=== PATIENT | female | born 1935 | race Caucasian/White ===

== ENCOUNTER 2019-06-29 13:23 | Emergency (ER) | payer OTHER, SELFPAY ==
--- NOTE | 2019-06-29 13:43 | ED.WOUNDLAC ---
HPI - Wound/Laceration General Chief Complaint: Wound/Laceration Stated Complaint: stitches removal Source: patient and RN notes reviewed Mode of arrival: ambulatory (walker) Limitations: no limitations History of Present Illness HPI narrative: This is a 84 years old female presents to the office for an evaluation to get staple removed. She had a stable place on June 17 at [facility] post fall. Currently she is feeling fine except a little itchy scalp where the aleta are. She has not washed her hair since the injury. Related Data Home Medications Medication Instructions Recorded Confirmed Aspir-81 06/29/19 alprazolam 06/29/19 amlodipine 06/29/19 atorvastatin 06/29/19 fluticasone propionate INTRANASAL 06/29/19 losartan 06/29/19 metoprolol tartrate 06/29/19 omeprazole 06/29/19 Allergies Allergy/AdvReac Type Severity Reaction Status Date / Time ANTINEOPL Allergy Intermediate Uncoded 12/02/14 14:34 chemo drugs Allergy Intermediate Uncoded 12/02/14 14:34 NITROGLYCERIN (Generic Allergy Mild Y Uncoded 12/02/14 14:34 Allergy) CHEMOTHERAPY DRUGS AdvReac Severe SYSTEM Uncoded 10/12/14 12:48 SHUTDOWN Review of Systems Review of Systems: Narrative: CONSTITUTIONAL: Denies feeling ill CARDIOVASCULAR: Denies chest pain RESPIRATORY: Denies dyspnea GASTROINTESTINAL: Denies nausea, vomiting SKIN: Reports maybe 4-6staples; not sure how many NEUROLOGIC: Denies headache PMFSH Past Medical History Medical History Anxiety ASHD (arteriosclerotic heart disease) Bilateral malignant neoplasm of breast in female 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 Cerebrovascular accident (CVA) Crohn's disease of small and large intestines with complication Essential hypertension Frequent falls H/O acute myocardial infarction Mixed hyperlipidemia 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 There is no relevant family history pertinent to the presenting complaint. Exam Narrative: Exam Narrative: GENERAL: This is a well-nourished, well-developed patient, in no apparent distress. HEAD: right parietal head noted 5staples; which were easily removed. Wound appears healing as aspect; no sign of secondary infection. NEURO: awake, alert, and oriented to person, place and time. There were no obvious focal neurologic abnormalities. Steady gait with walker Becker Coma Scale Eye Opening: Spontaneous 4 Becker Coma Scale Motor: Obeys Commands 6 Becker Coma Scale Verbal: Oriented 5 Course Vital Signs Vital signs: Vital Signs Temperature 98.7 F 06/29/19 13:47 Pulse Rate 71 06/29/19 13:47 Respiratory Rate 16 06/29/19 13:47 Blood Pressure 131/69 06/29/19 13:47 Pulse Oximetry 98 06/29/19 13:47 Temperature 98.7 F 06/29/19 13:47 Pulse Rate 71 06/29/19 13:47 Respiratory Rate 16 06/29/19 13:47 Blood Pressure 131/69 06/29/19 13:47 Pulse Oximetry 98 06/29/19 13:47 Critical Care Time Critical Care Time Critical Care Time: No Discharge Plan Discharge Clinical Impression: Encounter for removal of aleta Patient Disposition: Home, Self-Care Condition: Stable Additional Instructions: You may wash your hair; but gentle and then dry it. Avoid scratching as it may lead to skin infection. Prescriptions: No Action atorvastatin 40 mg tablet RF: 0 metoprolol tartrate 100 mg tablet RF: 0 amlodipine 5 mg tablet RF: 0
[2019-06-29 13:47] VITALS: BP 131/69; PULSE 71; RESP 16; TEMP 37.1; O2SAT 98
== END 2019-06-29 14:22 | disposition home or self-care (01) ==
PROVIDERS: Emergency Provider Nurse Practitioner; PCP Family Medicine
DX: S01.01XD Laceration without foreign body of scalp, subsequent encounter (principal); W19.XXXD Unspecified fall, subsequent encounter
CPT/HCPCS: 99211; G0463

== ENCOUNTER 2020-09-09 11:38 | Outpatient (CLI) | payer OTHER, SELFPAY ==
--- NOTE | ~2020-09-09 | US_ITS ---
EXAMINATION: US venous doppler [facility] DATE: 09/09/2020 12:51 INDICATION: Lower limb pain and swelling. TECHNIQUE: Grayscale ultrasound images without and with compression and Doppler ultrasound images of the bilateral lower extremity veins were obtained. COMPARISON: None. FINDINGS: The visualized portions of right common femoral vein, profunda (deep) femoral vein, femoral vein, pop liteal vein, peroneal veins, posterior tibial veins, and greater saphenous vein outflow are patent. The visualized portions of left common femoral vein, profunda femoral vein, femoral vein, popliteal v ein, peroneal veins, posterior tibial veins, and greater saphenous vein outflow are patent. IMPRESSION: 1. No deep venous thrombosis. Reviewed, dictated and finalized at location A.
== END 2020-09-09 11:39 | disposition home or self-care (01) ==
LOC: ANHIMG 11:46
PROVIDERS: Visit Provider Podiatrist Foot & Ankle Surgery
DX: M79.89 Other specified soft tissue disorders (principal)
CPT/HCPCS: 93970

== ENCOUNTER 2021-04-03 19:48 | Inpatient (IN) | payer OTHER, MEDICAID, SELFPAY ==
--- NOTE | ~2021-04-03 | CT_ITS ---
EXAMINATION: CT brain wo con EXAM DATE: 04/04/2021 19:35 INDICATION: hyponatremia with ams. TECHNIQUE: Spiral CT of the head was performed without contrast. Axial, coronal and sagittal images were reviewed. The dose-length product (DLP) for this examination was 605.33 mGy-cm. The exposure w as tailored according to patient size, and iterative reconstruction (ASIR) was used as additional dos e reduction technique. Comparison is made to prior examination from 02/22/2011. FINDINGS: There is no acute intraparenchymal hemorrhage. No evidence of intraparenchymal brain mass lesion. No evidence of acute infarction. Please note that initial head CT has limited sensitivity f or small or acute infarctions. There is moderate-sized old right occipital lobe infarction, was not present in 2015. There is moderate periventricular and subcortical hypodensity, nonspecific but prob ably related to small vessel ischemic disease. There is prominence of the sulci and ventricles rela latrice to cerebral atrophy. There is intracranial carotid arteriosclerosis. There are no extra-axial collections. There is no mass effect or midline shift. Patient has had right-sided ocular lens surg gokul. Soft tissue is unremarkable. Completely opacified left frontal, anterior ethmoid, maxillary si nuses, ostiomeatal unit obstructive pattern. This was present in 2014. IMPRESSION: 1. No acute intracranial findings. 2. Chronic age related findings. 3. Chronic left lower OMU pattern obstructive sinus disease. Reviewed, dictated and finalized at location . PLANNER
--- NOTE | ~2021-04-03 | XR_ITS ---
EXAMINATION: XR chest 2V EXAM DATE: 04/03/2021 23:05 INDICATION: Hyponatremia, Increased Weakness, Nausea, Vomiting, Bone CA. TECHNIQUE: Frontal and lateral projections of the chest obtained and reviewed. Comparison is made to prior examination from 06/21/2014. FINDINGS: There is a dual lead pacemaker/AICD seen with leads projecting over the expected locations of the right atrial appendage and right ventricle. There is cardiomegaly. The lungs are hyperinfla latrice which can be seen with chronic obstructive pulmonary disease (a clinical diagnosis of functional impairment), but is not diagnostic of it. No confluent consolidation, pneumothorax or pleural effusion suspected. Right axillary surgical clips . Severe left glenohumeral joint osteoarthritis. Moderate thoracolumbar levoscoliosis, mild thoracic dextroscoliosis. There is aortic arteriosclerosis. There is an old right 7th rib fracture posterolate rally. IMPRESSION: No acute cardiopulmonary findings or interval change. Reviewed, dictated and finalized at location . 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
[2021-04-03 19:57] VITALS: BP 72/36; PULSE 52; RESP 20; TEMP 37.3; O2SAT 98
[2021-04-03 20:32] VITALS: BP 145/58; PULSE 66; RESP 16; O2SAT 100
--- NOTE | 2021-04-03 20:35 | ECG_ITS ---
Measurements Intervals [place] Rate: 66 P: 59 FL: 241 QRS: 5 QRSD: 102 T: 48 QT: 456 QTc: 478 Interpretive Statements SINUS RHYTHM WITH FIRST DEGREE AV BLOCK FREQUNET ATRIAL PREMATURE COMPLEXES BORDERLINE ST ABNORMALITY- ANTEROLAT/HIGH LAT LEADS BASELINE ARTIFACT- I, II, III, AVR, AVL, AVF, V1-V6 ABNORMAL ECG Electronically Signed On 04-04-2021 8:05:25 [employer]EL[employer] by Vikas Hinojosa D.O.
[2021-04-03 21:22] LABS: Basophils Absolute Auto 0.1 K/mm3 (0.0-0.1); Basophils Percent Auto 0.4 % (0.2-1.2); Eosinophils Absolute Auto 0.1 K/mm3 (0-0.3); Eosinophils Percent Auto 0.4 % (0-4.4); Hematocrit 35.8 % (37.0-47.0); Hemoglobin 12.4 g/dL (12.0-15.0); Immature Granulocyte Absolute 0.02 K/mm3 (0.00-0.031); Immature Granulocyte Percent A 0.2 % (0-0.5); Immature Platelet Fraction Pct 7.2 % (0.9-11.2); Lymphocytes Absolute Auto 3.38 K/mm3 (0.9-3.2); Lymphocytes Percent Auto 30.2 % (18.3-44.2); Mean Corpuscular HGB Conc 34.6 g/dl (32-36); Mean Corpuscular Hemoglobin 28.5 pg (26-34); Mean Corpuscular Volume 82.3 fl (80-100); Mean Platelet Volume 10.7 fl (7.4-10.4); Monocytes Absolute Auto 0.8 K/mm3 (0.1-0.6); Neutrophils Absolute Auto 6.9 K/mm3 (1.3-6.7); Neutrophils Percent Auto 61.8 % (45.5-73.1); Platelet Count Result 215 k/mm3 (150-375); Red Blood Count 4.35 M/mm3 (4.2-5.4); Red Cell Distribution Width 13.2 % (11.5-14.5); White Blood Count 11.2 K/mm3 (4.5-10.0)
--- NOTE | 2021-04-03 21:25 | ED.WEAKNESS ---
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 go to [facility] but today she wanted to come here She says that she was kicked out of [facility] about 3 days ago She does not know why that happened or what her diagnosis was or even remember why she went to the hospital but she does recall bonding with a nurse on the fourth floor who was apparently descended from [employer] and while she was [place] so they apparently bonded over their ancestry Additionally she tells me that her dad worked on the [employer] bridge from [place] [facility] when she was a kid and that she was very precocious and would only swim in 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 Asher who is apparently a very famous urologist who used to have offices in the [facility] according to the patient but she is not sure what the diagnosis is either There is a lack of any other explicit complaints such as cough, gi sx, cp, etc. Related Data Home Medications Medication Instructions Recorded Confirmed Aspir-81 06/29/19 alprazolam 06/29/19 amlodipine 06/29/19 atorvastatin 06/29/19 fluticasone propionate INTRANASAL 06/29/19 losartan 06/29/19 metoprolol tartrate 06/29/19 omeprazole 04/27/20 Allergies Allergy/AdvReac Type Severity Reaction Status Date / Time ANTINEOPL Allergy Intermediate Unknown Uncoded 04/03/21 20:34 chemo drugs Allergy Intermediate Unknown Uncoded 04/03/21 20:34 NITROGLYCERIN (Generic Allergy Mild Y Uncoded 12/02/14 14:34 Allergy) CHEMOTHERAPY DRUGS AdvReac Severe SYSTEM Uncoded 10/12/14 12:48 SHUTDOWN Review of Systems Review of Systems: All systems reviewed & are unremarkable except as noted in HPI and below Constitutional: Constitutional: Reports no additional constitutional complaints, Denies chills, Reports fatigue, Denies fever(s), Denies headache(s) and Reports weakness Eyes: Eyes: Reports change in vision ENT: Denies headache(s) and Denies sore throat Cardiovascular: Cardiovascular: Denies chest pain and Denies dyspnea Respiratory: Respiratory: Denies cough and Denies dyspnea Gastrointestinal: Gastrointestinal: Denies abdominal pain, Denies diarrhea, Reports nausea and Denies vomiting Genitourinary: Genitourinary: Denies urinary frequency, Reports nocturia and Reports dysuria Musculoskeletal: Musculoskeletal: Reports myalgias, Denies deformity, Denies arthralgias, Denies joint swelling and Denies numbness Integumentary/Breasts: Skin/Breast: Denies rash and Denies wounds Neurologic: Reports confusion, Denies headache(s), Denies focal weakness, Denies numbness and Reports weakness Psychiatric: Psychiatric: Reports as per HPI Endocrine: Endocrine: Reports no additional endocrine complaints Hematologic/Lymphatic: Hematologic/Lymphatic: Reports no additional hematologic/lymphatic complaints Allergic/Immunologic: Allergic/Immunologic
[2021-04-03 21:40] LABS: Alanine Aminotransferase 12 U/L (4-35); Albumin Level 4.2 g/dL (3.5-5.1); Alkaline Phosphatase 77 U/L (38-126); Anion Gap 8 mmol/L (8-16); Aspartate Amino Transferase 29 U/L (14-36); Bilirubin,Total 1.3 mg/dL (0.2-1.3); Blood Urea Nitrogen 7 mg/dL (7-17); Calcium 8.5 mg/dL (8.4-10.2); Carbon Dioxide 21 mmol/L (22-30); Chloride 89 mmol/L (98-107); Estimated CRCL calculation 83 ml/min; Estimated Glomerular Filt Rate > 60; Glucose 171 mg/dL (65-110); Potassium 3.3 mmol/L (3.4-5.0); Sodium 118 mmol/L (137-145)
--- NOTE | 2021-04-03 22:19 | PC.NURSE ---
Patient sits in the room and talks to herself.
[2021-04-03] MEDS: SODIUM CHLORIDE 0.9% IV 1,000 ML 150 ML IV CONT (22:29)
[2021-04-03] MEDS: POTASSIUM CHLORIDE 20 MEQ PACKET (FOR LIQUID) 40 MEQ PO (22:30)
[2021-04-03 22:47] VITALS: PULSE 65
--- NOTE | 2021-04-03 23:00 | PM.IMHP ---
H&P: HPI History of Present Illness Date/Time: 04/03/21 23:00 Chief Complaint: ?bladder issues? Narrative: 86-year-old female with past medical history of bipolar disorder, anxiety, hypertension and Crohn's disease who presented to the ER with bladder issues. She reports that any time her bladder builds up it poisons her. She stated that she came to the ER because she feels like she could . She cannot describe any other symptoms to me. I suspect that she is trying to describe urinary retention and possible urinary tract infections but I am unsure. Patient stated that she was just at [facility] for similar symptoms. She stated that she was there because her body was trying to poison her. She stated that she was kicked out of the hospital 3 days ago. She cannot tell me what her diagnosis was at the hospital. She states that she has stage IV non-Hodgkin's lymphoma but her oncologist told her that she would not from the lymphoma she would from old age 1st. She denies any fevers, chills, or vomiting. She tells me that she feels like something is here in points to her lower neck area. She states that she did get her COVID vaccines. The patient was alert and oriented to person place time and the name of the current president. She was confused as to what symptoms she brought her to the ER. She tells me that she has not been confused. But then no sooner than she says this she tells me that she has been delusional. She is quite fixated on the fact that her primary care physician stopped giving her Xanax. She reports that she has been on Xanax for years. Her last Xanax prescription was filled on the 22 of February and was a 10 day supply. She states that the physician she saw at the other hospital told her that it was inappropriate for primary care doctor to stop her Xanax since she had been on it for so many years. They told her that she will go through significant withdrawals. The patient reports that she is chronically anxious. The patient does not seem to be acutely withdrawing at this moment. I tried to explain to the patient that if she ran out of her meds a couple of weeks ago she should already be past the acute symptoms of withdrawal. The patient has straight catheterization in the ER which resulted in 800 mL in urine output. Bladder scan post straight catheterization still demonstrated almost 200 mL of urine. In the ER the patient was stating bizarre fax. 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 But today she wanted to come to our hospital for evaluation. She was rambling about bizarre fax in her childhood. She stated that she has some caregivers from the state that she had to get rid of because they were stealing from her. She has a new screen printing machine loader unloader that she hired herself but the screen printing machine loader unloader did not show up for left early and the patient was only able to eat peanut butter. She did not tell me any of these facts. She did tells me that she lives in a clean and style home in [place]. She states that her neighbor helps her out from time to time. She she states that she has a very large cat that is 2 years old. She reports that she ambulates with a walker. She states that she has 2 sons 1 lives in [place] that is her POA. The other son lives in [place]. She reports that she has not talked to her daughter in 10 years. Review of Systems Review of Systems: 12 systems were reviewed with pertinent positives and negatives per HPI. Except as documented in the HPI, all other systems were reviewed and are negative. 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
[2021-04-03 23:28] VITALS: BP 185/89; PULSE 70; RESP 15; O2SAT 18
[2021-04-03 23:49] LABS: Add Urine Microscopic? YES; Appearance Urine Clear (Clear); Bacteria Urine Trace /hpf; Bilirubin Urine Negative (Negative); Blood Urine Negative (Negative); Color Urine Straw (Yellow); Glucose Urine UA Negative (Negative); Ketones Urine Trace mg/dL (Negative); Leukocyte Esterase Ur Negative LEU/UL (Negative); Mucus Urine Rare /lpf; Nitrate Urine Negative (Negative); Protein Urine Negative (Negative); Specific Grav Ur 1.008 (1.001-1.035); Squamous Epithelial Cell Urine Rare /hpf (Few); Urobilinogen Urine Negative mg/dL (<2.0); WBC Urine 0-3 /hpf
[2021-04-03 23:53] LABS: Sodium Urine Random 146 meq/L
[2021-04-04] VITALS (15 sets, daily range): BP systolic 125–166; BP diastolic 51–92; PULSE 55–73; RESP 13–18; TEMP 36–37.4; O2SAT 95–99; BMI 19.4
[2021-04-04] MEDS: SODIUM CHLORIDE 0.9% IV 500 ML 999 ML IV CONT (00:10)
[2021-04-04 00:40] LABS: SARS-CoV-2 RNA PCR Negative
[2021-04-04 02:51] LABS: Creatinine Urine 14.2 mg/dL
--- NOTE | 2021-04-04 03:47 | ADMGEN ---
This patient, Moisse Lovlel, was admitted to Medical Room 343-01. Patient/family oriented to hospital policies and general routines including ID bracelet, bed and alarms, visiting hours, pain management, procedures, bathroom and other care routines, personal items, smoking policy, room service/diet, and visiting hours. Information on how to activate the Rapid Response Team has been discussed. Patient/Family are encouraged to report perceived risks to care and to ask questions if they do not understand what they are told or what they should do.
[2021-04-04 03:48] LABS: Basophils Absolute Auto 0.1 K/mm3 (0.0-0.1); Basophils Percent Auto 0.5 % (0.2-1.2); Eosinophils Percent Auto 0.3 % (0-4.4); Hemoglobin 13.5 g/dL (12.0-15.0); Immature Granulocyte Absolute 0.02 K/mm3 (0.00-0.031); Immature Granulocyte Percent A 0.2 % (0-0.5); Lymphocytes Absolute Auto 4.02 K/mm3 (0.9-3.2); Lymphocytes Percent Auto 39.1 % (18.3-44.2); Mean Corpuscular HGB Conc 34.6 g/dl (32-36); Mean Corpuscular Hemoglobin 28.5 pg (26-34); Mean Corpuscular Volume 82.5 fl (80-100); Mean Platelet Volume 9.6 fl (7.4-10.4); Monocytes Absolute Auto 0.7 K/mm3 (0.1-0.6); Monocytes Percent Auto 6.3 % (2.6-8.5); Neutrophils Absolute Auto 5.5 K/mm3 (1.3-6.7); Neutrophils Percent Auto 53.6 % (45.5-73.1); Platelet Count Result 236 k/mm3 (150-375); Red Blood Count 4.73 M/mm3 (4.2-5.4); Red Cell Distribution Width 13.2 % (11.5-14.5); White Blood Count 10.3 K/mm3 (4.5-10.0)
[2021-04-04 03:59] LABS: Anion Gap 6 mmol/L (8-16); Blood Urea Nitrogen 4 mg/dL (7-17); Calcium 8.7 mg/dL (8.4-10.2); Carbon Dioxide 21 mmol/L (22-30); Chloride 98 mmol/L (98-107); Estimated CRCL calculation 96 ml/min; Estimated Glomerular Filt Rate > 60; Glucose 124 mg/dL (65-110); Sodium 125 mmol/L (137-145)
[2021-04-04 04:08] LABS: Sodium 125 mmol/L (137-145)
--- NOTE | 2021-04-04 06:05 | PC.NURSE ---
Pt's NS maintenance fluids were not started in ED, pt's sodium correction was too fast, but this RN was awaiting next scheduled lab to check for human error in sodium correction. Physician (Dr. Moura) called to inquire about fluids and too fast of a correction, physician is informed that pt is not on fluids at this time and orders for them to be stopped at this time. This RN complies.
[2021-04-04] MEDS: ACETAMINOPHEN 325 MG TABLET 650 MG PO (08:34)
[2021-04-04] MEDS: FAMOTIDINE 20 MG/2 ML VIAL IV PUSH ×2 (08:38→21:14)
[2021-04-04 09:56] LABS: Sodium 123 mmol/L (137-145)
--- NOTE | 2021-04-04 10:58 | PM.CNNEP ---
Assessment and Plan Assessment and plan (1) Hyponatremia: Code(s): E87.1 - Hypo-osmolality and hyponatremia Status: Acute Assessment and Plan: The patient has hyponatremia. It looks like she has chronic hyponatremia dating back to 2001. We do not have any labs between 2010 and now. It is possible that her hypernatremia back then was related to her breast cancer and when the breast cancer went away it is possible the sodium level became easier to control. But I suspect that it has been low all along. We will try to get some records from her primary care physician. The patient had a very low-sodium this time. This is probably related to her underlying propensity to hyponatremia plus her drinking lots of fluids to help her bladder . I told the we needed to restrict fluids. She was somewhat upset because she is afraid of her bladder issues. I explained, however, that the hyponatremia that she came in with is potentially deadly so she seems to be on board with this idea. There are several things that cause hyponatremia: DANCE CHOREOGRAPHER disorders. Because of her history of breast cancer, will get an MRI of the brain to make sure there are no mass lesions. Pulmonary disorders. She has no smoking history, no pulmonary symptoms, and her chest x-ray is clear. Cancer. 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 These may cause some problems with hyponatremia. Medicines. The patient is not on any medications that would do this. Hormonal. Will check a TSH and a cortisol level. Will also check a urine and serum osmolality as well as an SPEP. With lymphoma she could have a paraproteinemia which can cause lab artifact and lead to a falsely low sodium. will put her on a fluid restriction of 1200cc and see how she does. Her sodium level this morning is 118 and I do not want it to correct too quickly. Will follow sodiums closely. (2) Hypokalemia: Code(s): E87.6 - Hypokalemia Status: Acute Assessment and Plan: this was supplemented and is better. (3) Urinary retention with incomplete bladder emptying: Code(s): R33.9 - Retention of urine, unspecified Status: Acute Assessment and Plan: UA is normal. 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 the patient was recently in [facility]. It is not clear which she was therefore but she was discharged about 3 days ago. Then she felt strange in so came to the ER it [place]. They evaluated her and found that her sodium was 118. She was felt to be dehydrated so she was given some IV fluids and the sodium came up to 125. Fluids were discontinued now her sodium is 123. Renal consultation was requested. Looking back in the records in 2001 her sodium was almost always below 135. She says that this is when she had her original breast cancer. In 2010 she had 1 blood draw which showed a low sodium as well. She says that she has never smoked. She does not have any lung disease. She had the 1 stroke but otherwise has not had any DANCE CHOREOGRAPHER issues. She has the history of breast cancer and also lymphoma apparently the breast cancer is in remission but the lymphoma is present all the time and w
[2021-04-04] MEDS: FLUTICASONE PROPIONATE 0.05% NA SPR 16 GM BTL (*BKC) 1 SPRAY NASAL (11:22)
[2021-04-04] MEDS: ATORVASTATIN 40 MG TABLET PO (11:22)
[2021-04-04] MEDS: METOPROLOL SUCCINATE EXT REL 100 MG TABCR PO ×2 (11:25→21:14)
[2021-04-04] MEDS: amLODIPine BESYLATE 5 MG TABLET PO (11:26)
--- NOTE | 2021-04-04 13:53 | PC.NURSE ---
On 04/04/21, the student, Melva Townsend, provided care and completed [facility] documentation on this patient. I have reviewed the student's documentation and agree with the findings.
--- NOTE | 2021-04-04 14:01 | PM.IMPN ---
Progress Note: A&P Assessment and Plan (1) Hyponatremia: Code(s): E87.1 - Hypo-osmolality and hyponatremia Status: Acute Assessment and Plan: ER administered IV fluids in the ER and repeat sodium was elevated from 118 to 125. IV fluids were discontinued to prevent further elevation of sodium. I consulted Dr. Chapa for further assistance with hyponatremia. Nephrology started a fluid restriction at 1200 cc daily Will continue monitoring sodium every 4 hours Further imaging and labs ordered by Nephrology Continue monitoring. (2) Delirium: Code(s): R41.0 - Disorientation, unspecified Status: Acute Assessment and Plan: Patient has delirium I suspect this is combination of her hyponatremia and or a component of her bipolar disorder or early dementia. Seems to have resolved upon my evaluation. (3) Hypokalemia: Code(s): E87.6 - Hypokalemia Status: Acute Assessment and Plan: The patient received oral potassium supplementation in the ER. K today was normal at 4.0 Will repeat BMP in a.m.. (4) Urinary retention with incomplete bladder emptying: Code(s): R33.9 - Retention of urine, unspecified Status: Acute Assessment and Plan: The patient does have evidence of urinary retention with 800 mL of urine removed with straight catheterization with residual of 200 mL. Bladder scan today showed less than 200 cc being retained. She had urinated twice before hand. Patient states she has seen a urologist in the past for this issue. Will check postvoid residuals Q shift and straight cath as needed. Urinary retention could also play a component of the patient's delirium. Continue monitoring. Time Spent With Patient Time with patient: 25 - 35 minutes Subjective Date/time seen: 04/04/21 14:01 Interval history: Date of service 04/04/21: Patient reports feeling well at this time. She states she came into the hospital due to urinary issues and states that it is much better at this time. She denies having any more urinary retention, or denies any symptoms of dysuria. She states she had been drinking a lot of fluid because after she was told to do when she has urinary issues. Denies any chest pain, shortness of breath, cough, nausea, vomiting, abdominal pain, leg swelling, calf pain, or any other symptoms at this time. Review of Systems Review of Systems: All systems reviewed & are unremarkable except as noted in HPI and below Exam Narrative: General: 86-year-old woman laying flat in bed taking a nap, easily arousable. Appears comfortable. In no acute distress. Skin: No jaundice or cyanosis. Good skin turgor. Neck: Full range of motion. Supple. Respiratory: Lungs are clear to auscultation bilaterally. No bony chest wall tenderness. Cardiovascular: The heart has a regular rate and rhythm without murmur. Lower extremities: No lower extremity edema. Distal pulses are easily palpated. No calf tenderness to palpation. Gastrointestinal: The abdomen is soft, nontender and nondistended with active bowel sounds. Psychiatric: Appropriate mood and affect. Neurologic: A&Ox4. No focal deficits. Speech is clear. No facial drooping. Objective Data Vital Signs Vital Signs: Vital Signs - 24 hr 04/03/21 19:57 04/03/21 20:32 04/03/21 22:47 Temperature 99.2 F Pulse Rate 52 L 66 65 Respiratory Rate 20 16 Blood Pressure 72/36 L 145/58 H Pulse Oximetry 98 100 04/03/21 23:28 04/04/21 00:11 04/04/21 01:32 Temperature Pulse Rate 70 71 56 L Respiratory Rate 15 13 14 Blood Pressure 185/89 H 166/72 H 131/76 Pulse Oximetry 18 L 98 95 04/04/21 01:56 04/04/21 04:00 04/04/21 05:43 Temperature 96.8 F L Pulse Rate 67 66 63 Respiratory Rate 13 16 Blood Pr
[2021-04-04 16:02] LABS: Sodium 122 mmol/L (137-145)
[2021-04-04 16:36] LABS: Cortisol Random 7.57 ug/dL
[2021-04-04] MEDS: COSYNTROPIN 0.25 MG/ML VIAL IV PUSH (17:18)
[2021-04-04 18:53] LABS: Sodium 122 mmol/L (137-145)
[2021-04-04 23:30] LABS: Sodium 124 mmol/L (137-145)
[2021-04-05] VITALS (7 sets, daily range): BP systolic 122–170; BP diastolic 64–78; PULSE 54–82; RESP 18–20; TEMP 36.2–36.8; O2SAT 99
[2021-04-05 04:08] LABS: Sodium 127 mmol/L (137-145)
[2021-04-05 07:40] LABS: Anion Gap 6 mmol/L (8-16); Blood Urea Nitrogen 11 mg/dL (7-17); Calcium 8.9 mg/dL (8.4-10.2); Carbon Dioxide 21 mmol/L (22-30); Chloride 99 mmol/L (98-107); Estimated CRCL calculation 75 ml/min; Estimated Glomerular Filt Rate > 60; Glucose 105 mg/dL (65-110); Potassium 3.7 mmol/L (3.4-5.0); Sodium 126 mmol/L (137-145)
[2021-04-05] MEDS: ATORVASTATIN 40 MG TABLET PO (07:56)
[2021-04-05] MEDS: METOPROLOL SUCCINATE EXT REL 100 MG TABCR PO ×2 (07:56→21:23)
[2021-04-05] MEDS: amLODIPine BESYLATE 5 MG TABLET PO (07:57)
[2021-04-05] MEDS: FLUTICASONE PROPIONATE 0.05% NA SPR 16 GM BTL (*BKC) 1 SPRAY NASAL (07:57)
[2021-04-05] MEDS: FAMOTIDINE 20 MG/2 ML VIAL IV PUSH ×2 (07:57→21:22)
--- NOTE | 2021-04-05 10:28 | PM.IMPN ---
Progress Note: A&P Assessment and Plan (1) Hyponatremia: Code(s): E87.1 - Hypo-osmolality and hyponatremia Status: Acute Assessment and Plan: ER administered IV fluids in the ER and repeat sodium was elevated from 118 to 125. IV fluids were discontinued to prevent further elevation of sodium. I consulted Dr. Chapa for further assistance with hyponatremia who did further testing which showed a normal TSH, normal Cortrosyn stim. Could be secondary to increased fluid intake at home because she says she has been told to drink plenty of fluids verses history of breast cancer and lymphoma in the past. Nephrology started a fluid restriction at 1200 cc daily Sodium is improving to 129 this afternoon. And will continue with fluid restriction. Will continue monitoring sodium every 6 hours Continue monitoring. Appreciate Nephrology's input. (2) Delirium: Code(s): R41.0 - Disorientation, unspecified Status: Acute Assessment and Plan: Patient has delirium I suspect this is combination of her hyponatremia and or a component of her bipolar disorder or early dementia. She is alert and oriented, but has some confusion at times with things she says Seems to have resolved upon my evaluation. (3) Hypokalemia: Code(s): E87.6 - Hypokalemia Status: Acute Assessment and Plan: The patient received oral potassium supplementation in the ER. K today was normal at 3.7 Will repeat BMP in a.m.. (4) Urinary retention with incomplete bladder emptying: Code(s): R33.9 - Retention of urine, unspecified Status: Acute Assessment and Plan: The patient does have evidence of urinary retention with 800 mL of urine removed with straight catheterization with residual of 200 mL. Bladder scan today showed less than 200 cc being retained. She had urinated twice before hand. Patient states she has seen a urologist in the past for this issue. Will check postvoid residuals Q shift and straight cath as needed. Urinary retention could also play a component of the patient's delirium. Continue monitoring. Time Spent With Patient Time with patient: 25 - 35 minutes Subjective Date/time seen: 04/05/21 10:28 Interval history: Date of service 04/05/21: Patient reports feeling well at this time. She denies any more urinary issues at this time. She is minimally confused thinking that she was just brought to this room overnight. She otherwise states she has been eating and drinking well. She denies any chest pain, shortness of breath, cough, nausea, vomiting, abdominal pain, leg swelling, calf pain, or any other symptoms at this time. Review of Systems Review of Systems: All systems reviewed & are unremarkable except as noted in HPI and below Exam Narrative: General: 86-year-old woman sitting up in bed watching TV. Appears comfortable. In no acute distress. Skin: No jaundice or cyanosis. Good skin turgor. Neck: Full range of motion. Supple. Respiratory: Lungs are clear to auscultation bilaterally. No bony chest wall tenderness. Cardiovascular: The heart has a regular rate and rhythm without murmur. Lower extremities: No lower extremity edema. Distal pulses are easily palpated. No calf tenderness to palpation. Gastrointestinal: The abdomen is soft, nontender and nondistended with active bowel sounds. Psychiatric: Appropriate mood and affect. Neurologic: Somewhat confused thinking that she was just brought to this room. Otherwise answering questions with being alert x4. No focal deficits. Speech is clear. No facial drooping. Objective Data Vital Signs Vital Signs: Vital Signs - 24 hr 04/04/21 11:10 04/04/21 11:25 04/04/21 12:00 Temperature 99.4 F Pulse Rate 55 L 55 L 69 Respir
[2021-04-05 12:10] LABS: Sodium 129 mmol/L (137-145)
--- NOTE | 2021-04-05 14:06 | PM.PNNEP ---
Progress Note: A&P Assessment and Plan (1) Hyponatremia: Code(s): E87.1 - Hypo-osmolality and hyponatremia Status: Acute Assessment and Plan: The patient has hyponatremia. It looks like she has chronic hyponatremia dating back to 2001. CT of the brain is negative. Chest x-ray is clear. She is on no medications that do this. Her TSH is okay. Cortrosyn stim was okay. she does have a history of cancer of the breast and also lymphoma which may be contributing. On top of the underlying hyponatremia, she has been drinking lots of fluid at home which is probably drove her sodium down to 118. Now by fluid restricting her sodium level has come up. It was 125 today. This is an appropriate rate of improvement of sodium. Will continue with this strategy for now. Will check a sodium level this afternoon at 4:00 p.m. (2) Hypokalemia: Code(s): E87.6 - Hypokalemia Status: Acute Assessment and Plan: normal today (3) Urinary retention with incomplete bladder emptying: Code(s): R33.9 - Retention of urine, unspecified Status: Acute Assessment and Plan: UA is normal. Subjective Date/time seen: 04/05/21 14:06 Interval history: Richard is feeling better today. Happy and talkative. No chest pain or shortness of breath. She is drinking only when she is thirsty not if she is not. She is officially on a fluid restriction but seems to be getting enough to satisfy her. Review of Systems Cardiovascular: Cardiovascular: Reports no additional cardiovascular complaints Respiratory: Respiratory: Reports no additional respiratory complaints Gastrointestinal: Gastrointestinal: Reports no additional gastrointestinal complaints Genitourinary: Genitourinary: Reports no additional female genitourinary complaints Exam Narrative: WDWN in NAD skin no rash or subcu nodules head ncat lungs clear cor reg no rub abd BS+ nontender and soft ext no edema. Objective Data Vital Signs Vital Signs: Vital Signs - 24 hr 04/04/21 14:49 04/04/21 16:00 04/04/21 20:00 Temperature 36.4 C Pulse Rate 63 68 67 Respiratory Rate 18 16 Blood Pressure 126/64 Pulse Oximetry 97 98 04/04/21 21:14 04/04/21 22:00 04/05/21 00:00 Temperature 36.3 C L Pulse Rate 67 67 54 L Respiratory Rate 16 Blood Pressure 150/70 H Pulse Oximetry 98 04/05/21 04:00 04/05/21 06:00 04/05/21 07:56 Temperature 36.2 C L Pulse Rate 66 74 82 Respiratory Rate 18 Blood Pressure 170/74 H Pulse Oximetry 99 Intake/Output Intake/Output: Intake & Output 04/02/21 04/03/21 04/04/21 04/05/21 23:59 23:59 23:59 23:59 Intake Total 2650 20 Output Total 800 1200 0 Balance -800 1450 20 Meds/Results Medications: Active Medications Generic Name Dose Route Start Last Admin Trade Name Freq PRN Reason Stop Dose Admin Acetaminophen 650 mg 04/03/21 23:55 04/04/21 08:34 Acetaminophen 325 Mg Tablet PO 650 mg Q4H PRN Administration Mild Pain (1-3) or Fever Amlodipine Besylate 5 mg 04/04/21 09:15 04/05/21 07:57 Amlodipine Besylate 5 Mg Tablet PO 5 mg DAILY MARCUS Administration Atorvastatin Calcium 40 mg 04/04/21 09:15 04/05/21 07:56 Atorvastatin 40 Mg Tablet PO 40 mg DAILY MARCUS Administration Famotidine 20 mg 04/04/21 09:00 04/05/21 07:57 Famotidine 20 Mg/2 Ml Vial IV PUSH 20 mg Q12HR MARCUS Administration Fluticasone Propionate 1 spray 04/04/21 09:00 04/05/21 07:57 Fluticasone Propionate 0.05% Na Spr 16 Gm Btl (*Bkc) NASAL 1 spray DAILY MARCUS Administration Metoprolol Succinate 100 mg 04/04/21 09:15 04/05/21 07:56 Metoprolol Succinate Ext Rel 100 Mg Tabcr PO 100 mg Q12HR MARCUS Administration Ondansetron HCl 4 mg 04/03/21 23:55 Ondansetron Inj 4 Mg/2 Ml Vial IV PUSH Q4H PRN Nausea Radiology Results: ITS Impressions Chest X-Ray 04/03/21 23:05 IMPRESSION: No acute c
[2021-04-05 16:36] LABS: Sodium 127 mmol/L (137-145)
[2021-04-05 18:29] LABS: Sodium 125 mmol/L (137-145)
[2021-04-06] VITALS (7 sets, daily range): BP systolic 116–153; BP diastolic 63–81; PULSE 60–77; RESP 16–18; TEMP 36.6–37; O2SAT 98–100
[2021-04-06 01:01] LABS: Sodium 127 mmol/L (137-145)
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
[2021-04-06] MEDS: METOPROLOL SUCCINATE EXT REL 100 MG TABCR PO ×2 (09:38→20:51)
[2021-04-06] MEDS: FLUTICASONE PROPIONATE 0.05% NA SPR 16 GM BTL (*BKC) 1 SPRAY NASAL (09:38)
[2021-04-06] MEDS: FAMOTIDINE 20 MG/2 ML VIAL IV PUSH ×2 (09:38→20:51)
[2021-04-06] MEDS: amLODIPine BESYLATE 5 MG TABLET PO (09:38)
[2021-04-06] MEDS: ATORVASTATIN 40 MG TABLET PO (09:38)
[2021-04-06 10:16] LABS: Mean Corpuscular HGB Conc 34.2 g/dl (32-36); Mean Corpuscular Hemoglobin 28.4 pg (26-34); Mean Corpuscular Volume 83.2 fl (80-100); Mean Platelet Volume 9.4 fl (7.4-10.4); Platelet Count Result 227 k/mm3 (150-375); Red Blood Count 4.57 M/mm3 (4.2-5.4)
[2021-04-06 10:50] LABS: Albumin Level 3.6 g/dL (3.5-5.1); Anion Gap 2 mmol/L (8-16); Blood Urea Nitrogen 15 mg/dL (7-17); Calcium 8.8 mg/dL (8.4-10.2); Carbon Dioxide 24 mmol/L (22-30); Chloride 101 mmol/L (98-107); Estimated CRCL calculation 75 ml/min; Estimated Glomerular Filt Rate > 60; Glucose 120 mg/dL (65-110); Phosphorus 3.8 mg/dL (2.5-4.5); Potassium 3.4 mmol/L (3.4-5.0); Sodium 127 mmol/L (137-145)
--- NOTE | 2021-04-06 11:56 | PCPTNOTE ---
Patient refused to see PT/OT at this time.
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
[2021-04-06 16:13] LABS: Sodium 129 mmol/L (137-145)
[2021-04-06] MEDS: ENOXAPARIN 40 MG/0.4 ML SYRINGE SUB-Q (17:23)
[2021-04-06] MEDS: POTASSIUM CHLORIDE 20 MEQ TABLET 40 MEQ PO (17:23)
[2021-04-07 00:51] LABS: Sodium 127 mmol/L (137-145)
[2021-04-07 06:28] VITALS: BP 172/87; PULSE 73; RESP 20; TEMP 37.3; O2SAT 99
[2021-04-07 06:46] VITALS: BP 158/64
[2021-04-07 07:56] LABS: Osmolality, Urine 356 mOsm/kg (50-1200)
[2021-04-07 08:44] VITALS: PULSE 80
[2021-04-07] MEDS: ATORVASTATIN 40 MG TABLET PO (08:44)
[2021-04-07] MEDS: ENOXAPARIN 40 MG/0.4 ML SYRINGE SUB-Q (08:44)
[2021-04-07] MEDS: amLODIPine BESYLATE 5 MG TABLET PO (08:44)
[2021-04-07] MEDS: FLUTICASONE PROPIONATE 0.05% NA SPR 16 GM BTL (*BKC) 1 SPRAY NASAL (08:44)
[2021-04-07] MEDS: METOPROLOL SUCCINATE EXT REL 100 MG TABCR PO (08:44)
[2021-04-07] MEDS: FAMOTIDINE 20 MG/2 ML VIAL IV PUSH (08:45)
[2021-04-07 11:18] VITALS: BP 124/64
[2021-04-07 11:19] VITALS: BP 127/69; BP 149/86
--- NOTE | 2021-04-07 12:38 | PM.DS ---
DS: Admitting Diagnosis Discharge Date 04/07/21 Admitting Diagnosis Hyponatremia DS: Discharge Diagnosis Discharge Diagnosis (1) Hyponatremia: Code(s): E87.1 - Hypo-osmolality and hyponatremia Status: Acute Assessment and Plan: The patient is an 86-year-old female with past medical history of bipolar disorder, anxiety, hypertension and Crohn's disease who presented to the ER with bladder issues . Initial vitals showed hypotensive blood pressure at 72/36, heart rate 52, afebrile, normal oxygenation at 98% on room air. Initial labs showed leukocytosis at 11,200, normal differential. Severe hyponatremia at 118. Hypokalemia at 3.3. Hypochloremia at 89. Normal renal function. Glucose 171. Normal LFTs. Normal TSH. Urinalysis showed no signs of an infection. COVID PCR was negative. Chest x-ray showed no acute cardiopulmonary findings. CT head showed no acute intracranial findings. Chronic age-related findings. In the emergency room the patient was found to be retaining urine, 800 cc were removed via straight cath. We continued monitoring her urine residuals and she was emptying her bladder without any issues. The patient was admitted to the hospital with hyponatremia and confusion. ER administered IV fluids in the ER and repeat sodium was elevated from 118 to 125. IV fluids were discontinued to prevent further elevation of sodium. I consulted Dr. Chapa for further assistance with hyponatremia who did further testing which showed a normal TSH, normal Cortrosyn stim. Will place the patient on a fluid restriction and her sodium increased well. Her sodium has been stable at 127 over last few days. We feel this time this is her baseline sodium. She is otherwise feeling well at this time. Orthostatics were normal. She appears well hydrated at this time. Nephrology agreed with discharge at this time. PT/OT had some concerns about the patient going home alone. We discussed the patient going to an SNF facility and she refuses. The patient recently had home health after her last hospitalization at [facility] few weeks ago, but home health would not return to her house because it was a liability because she was not safe at home. Much time was spent talking to the patient's power of securities attorney Per her son. Per drove down from [place] and picked up the patient to take her home. The patient did walk 48 ft with physical therapy as a contact guard. Told her she needs to wear Dax hose during the day given her intermittent lightheadedness with sitting up too quickly and standing. Orthostatics were normal. She does have compression stockings at home that she used to wear for leg swelling and she understands she needs to wear them now throughout the day. I explained to Per that she is not safe at home alone and she needs 24 hour care. He understands and agrees with the plan for discharge. They need to find a primary care provider so that she can follow-up and they can order home health again if that is necessary. The patient was not in agreement for an SNF facility but she is interested in going to [facility] assisted living facility. I told her son Per that he can look into this is of living facility in start the paperwork if she is in agreement. She was discharged home safely with her son who will be there for 24 hour care. Follow-up instructions given. Return to ER warnings given. Patient's son understand agree with the plan all questions answered. (2) Delirium: Code(s): R41.0 - Disorientation, unspecified Status: Acute Assessment and Plan: Doing well at this time. (3) Hypokalemia: Code(s): E87.6 - Hypokalemia Status: Acute Assessment and Plan: Stable. (4) Urinary retention with incomplete bladder emptying: Code(s): R33.9 - Re
[2021-04-07 14:00] VITALS: BP 139/63; PULSE 70; RESP 16; TEMP 36.7; O2SAT 100
[2021-04-10 03:26] LABS: Albumin 3.5 g/dL (3.8-4.8); Alpha 1 Globulin 0.3 g/dL (0.2-0.3); Alpha 2 Globulin 0.6 g/dL (0.5-0.9); Beta 1 Globulin 0.4 g/dL (0.4-0.6); Gamma Globulin 0.8 g/dL (0.8-1.7); Protein, Total 5.9 g/dL (6.1-8.1)
== END 2021-04-07 17:30 | disposition home or self-care (01) | DRG 641 ==
LOC: ANHED 23:44 → ANH3MED 04-04 07:16
PROVIDERS: Emergency Medicine; Internal Medicine Nephrology; Admitting Provider Internal Medicine; Emergency Provider Emergency Medicine; Visit Provider Physician Assistant
DX: E87.1 Hypo-osmolality and hyponatremia (principal); K50.90 Crohn's disease, unspecified, without complications; Z20.822 Contact with and (suspected) exposure to COVID-19; F31.9 Bipolar disorder, unspecified; R41.0 Disorientation, unspecified; I10 Essential (primary) hypertension; E87.6 Hypokalemia; R33.9 Retention of urine, unspecified; F41.9 Anxiety disorder, unspecified; I25.10 Atherosclerotic heart disease of native coronary artery without angina pectoris; G62.0 Drug-induced polyneuropathy; T45.1X5A Adverse effect of antineoplastic and immunosuppressive drugs, initial encounter; I69.398 Other sequelae of cerebral infarction; H54.62 Unqualified visual loss, left eye, normal vision right eye; E78.2 Mixed hyperlipidemia; M47.9 Spondylosis, unspecified; R32 Unspecified urinary incontinence; E55.9 Vitamin D deficiency, unspecified; I25.2 Old myocardial infarction; Z95.0 Presence of cardiac pacemaker; Z98.41 Cataract extraction status, right eye; Z96.1 Presence of intraocular lens; Z85.3 Personal history of malignant neoplasm of breast; Z85.72 Personal history of non-Hodgkin lymphomas
CPT/HCPCS: 36415; 51701; 70450; 71046; 80048; 80053; 80069; 81001; 82533; 82570; 83930; 83935; 84155; 84165; 84295; 84300; 84443; 85025; 85027; 85055; 93005; 96360; 96361; 97110; 97162; 97165; 97530; 97535; 99285; A9270; C9803; J0834; J1650; J7030; J7040; U0003; U0005

== ENCOUNTER 2021-10-31 23:19 | Observation (INO) | payer OTHER, MEDICAID, SELFPAY ==
--- NOTE | ~2021-10-31 | XR_ITS ---
EXAMINATION: XR chest 1V portable DATE: 10/31/2021 23:56 INDICATION: Fall. TECHNIQUE: A single frontal view of the chest was obtained. COMPARISON: Chest 2 views 04/03/2021 FINDINGS: There is mild scarring at the lung apices. No pleural effusion or pneumothorax. Cardiomegal y is noted. There is a left chest wall pacer with leads in the right atrium and right ventricle. Ther e are old healed right rib fractures. Surgical clips overlie right chest. IMPRESSION: 1. Stable mild scarring at the lung apices. 2. Cardiomegaly. Reviewed, dictated and finalized at location A.
--- NOTE | ~2021-10-31 | CT_ITS ---
EXAMINATION: CT brain wo con DATE: 11/01/2021 00:05 INDICATION: Fall. TECHNIQUE: Computed tomography (CT) of the head was performed without intravenous contrast. The mA wa s adjusted according to patient size. Iterative reconstruction technique was employed. The dose-lengt h product was 605.33 mGy-cm. COMPARISON: Head CT 04/04/2021 FINDINGS: There is an old infarct in right temporal occipital region in the expected distribution of right posterior cerebral artery. There are scattered areas of low attenuation in the cerebral white m atter. There is no intracranial hemorrhage, acute infarction, or abnormal intracranial mass lesion. T he ventricles are normal in size. There are likely changes of right ocular lens replacement surgery. There is mucosal thickening in the paranasal sinuses including complete of opacification of the front al and left maxillary sinuses. There is thickening and sclerosis of many of the sinus issa, consiste nt with chronic sinusitis. The mastoid air cells are normal. There is posterior scalp soft tissue swe lling. IMPRESSION: 1. 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 2. Stable moderate nonspecific cerebral white matter disease, which likely represents chronic small v essel ischemic disease. 3. Chronic sinusitis. Reviewed, dictated and finalized at location A. IMPRESSION: 1. 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 2. Stable moderate nonspecific cerebral white matter disease, which likely repr esents chronic small vessel ischemic disease. 3. Chronic sinusitis.
--- NOTE | ~2021-10-31 | US_ITS ---
EXAMINATION: US renal BI DATE: 11/01/2021 11:52 INDICATION: Acute renal insufficiency TECHNIQUE: Multiple ultrasound grayscale images of the kidneys were obtained. COMPARISON: None. FINDINGS: The right kidney measures 10.4 x 4.5 x 4.5 cm. The left kidney measures 8.5 x 3.8 x 4.7 cm. The kidne ys demonstrate normal echogenicity. There is no hydronephrosis in either kidney. No stones identifie d. The bladder is normal. IMPRESSION: 1. Normal kidneys without hydronephrosis. Reviewed, dictated and finalized at location A.
--- NOTE | ~2021-10-31 | CT_ITS ---
EXAMINATION: CT cervical spine wo con DATE: 11/01/2021 00:05 INDICATION: Head injury. TECHNIQUE: Computed tomography (CT) of the cervical spine was performed without intravenous contrast. Automated exposure control and iterative reconstruction technique were employed. The dose-length pro duct was 159.91 mGy-cm. COMPARISON: None FINDINGS: There is mild scarring at the lung apices. There is 3 degrees levocurvature of cervical spi ne. There is hypolordosis of cervical spine. There is 2 mm anterolisthesis of C3 on C4 and C7 on T1. Vertebral body heights are normal. There is moderately decreased disc height at C3-C4 and severely de creased disc height from C4-C5 through C7-T1. The following disc levels are specifically discussed: C2-C3: There is ankylosis of the uncovertebral joints without hypertrophy. There is ankylosis of the facet joints with mild right hypertrophy. There is no neural foraminal stenosis. There is no central canal stenosis. C3-C4: There is severe right and mild left uncovertebral joint osteoarthritis. There is severe bilate ral facet joint osteoarthritis. There is mild bilateral neural foraminal stenosis. There is mild cent ral canal stenosis. C4-C5: There is severe right and mild left uncovertebral joint osteoarthritis. There is severe bilate ral facet joint osteoarthritis. There is mild bilateral neural foraminal stenosis. There is mild cent ral canal stenosis. C5-C6: There is severe bilateral uncovertebral joint osteoarthritis. There is moderate left facet shalom nt osteoarthritis. There is ankylosis of right facet joint with mild hypertrophy. There is mild bilat eral neural foraminal stenosis. There is mild central canal stenosis. C6-C7: There is severe bilateral uncovertebral joint osteoarthritis. There is severe bilateral facet joint osteoarthritis. There is mild bilateral neural foraminal stenosis. There is mild central canal stenosis. C7-T1: There is severe bilateral uncovertebral joint osteoarthritis. There is severe bilateral facet joint osteoarthritis. There is mild bilateral neural foraminal stenosis. There is mild central canal stenosis. IMPRESSION: 1. No fracture. 2. Severe cervical spondylosis. Reviewed, dictated and finalized at location A.
[2021-10-31 23:19] VITALS: BP 126/101; PULSE 154; RESP 22
[2021-10-31 23:24] VITALS: BP 126/101; PULSE 145; RESP 18; O2SAT 63
--- NOTE | 2021-10-31 23:24 | ECG_ITS ---
Measurements Intervals [place] Rate: 117 P: OK: 0 QRS: 41 QRSD: 86 T: -87 QT: 354 QTc: 495 Interpretive Statements ATRIAL FIBRILLATION WITH RAPID VENTRICULAR RESPONSE MODERATE VOLTAGE CRITERIA FOR LVH, CONSIDER NORMAL VARIANT [MEETS CRITERIA IN ONE OF: R(aVL), S(V1), R(V5), R(V5/V6)+S(V1)] ST DEVIATION AND MODERATE T-WAVE ABNORMALITY, CONSIDER INFERIOR LATERAL ISCHEMIA VERSUS LVH WITH REPOLARIZATION CHANGES COMPARED TO ECG 04/03/2021 22:01:11 ATRIAL FIBRILLATION NOW PRESENT Electronically Signed On 11-01-2021 19:54:20 CDT by Nessa Nagy M.D.
[2021-10-31 23:25] VITALS: PULSE 140; RESP 18; O2SAT 46
[2021-10-31 23:30] VITALS: PULSE 130; RESP 23
[2021-10-31 23:31] VITALS: BP 122/81; PULSE 123; RESP 18; O2SAT 93; O2SAT 98
[2021-10-31 23:51] VITALS: PULSE 129; RESP 18
[2021-11-01] VITALS (25 sets, daily range): BP systolic 113–161; BP diastolic 50–97; PULSE 58–130; RESP 15–24; TEMP 36–37.1; O2SAT 93–100; BMI 18.7
--- NOTE | 2021-11-01 | ECHO_ITS ---
Patient Info Name: Moises Lovell Age: 86 years : 1935 Gender: Female Ht: 67 in Wt: 119 lbs BSA: 1.59 m2 HR: 95 bpm BP: 149 / 64 mmHg Heart Rhythm: Indeterminant Technical Quality: Fair Exam Date: 11/01/2021 1:05 PM Exam Location: [facility] Patient Status: Outpatient Admit Date: 11/01/2021 Staff Ordering Physician: David Cavanaugh MD Beam Machine Operator: Nhi Patel RDCS Attending Provider: Dannie Giles MD Exam Type: CA echo doppler color flow Study Info Indications I48.1 - Persistent atrial fibrillation Complete two-dimensional, color flow and Doppler transthoracic echocardiogram is performed. Summary 1. Complete two-dimensional, color flow and Doppler transthoracic echocardiogram is performed. 2. Normal left ventricular size with mild concentric hypertrophy. Hyperdynamic left ventricular systolic function with ejection fraction greater than 70%. Normal diastolic function. 3. Left atrial chamber dimension is mildly enlarged. 4. Right atrial chamber dimension is mildly enlarged. 5. Linear artifact in the right atrium suggestive of catheter(s), pacemaker lead(s), or ICD lead(s). 6. There is mild aortic valve sclerosis with mild aortic valve regurgitation. 7. There is mild to moderate tricuspid valve regurgitation. 8. Moderate pulmonary hypertension, estimated pulmonary arterial systolic pressure is 57 mmHg. 9. Rhythm indeterminate. Left Ventricle Left ventricular chamber dimension is normal. Left ventricular systolic function is hyperdynamic, estimated at >70%. There is mildly increased left ventricular wall thickness. Left ventricular septal wall motion is normal. The left ventricular diastolic function is normal. Right Ventricle Right ventricular chamber dimension is normal. Right ventricular systolic function is normal. Left Atria Left atrial chamber dimension is mildly enlarged. Right Atria Right atrial chamber dimension is mildly enlarged. Linear artifact in the right atrium suggestive of catheter(s), pacemaker lead(s), or ICD lead(s). Aortic Valve The aortic valve is trileaflet. There is mild aortic valve sclerosis. There is no aortic valve stenosis. There is mild aortic valve sclerosis with mild aortic valve regurgitation. Pulmonic Valve The pulmonic valve is normal. There is no pulmonic valve stenosis. There is no pulmonic regurgitation. Mitral Valve The mitral valve has normal leaflets. There is no mitral valve stenosis. There is trace mitral valve regurgitation. Tricuspid Valve The tricuspid valve leaflets are normal. There is no significant tricuspid valve stenosis. There is mild to moderate tricuspid valve regurgitation. Moderate pulmonary hypertension, estimated pulmonary arterial systolic pressure is 57 mmHg. Pericardium/Pleural The pericardium appears normal. There is no pericardial effusion. Inferior Vena Cava Normal inferior vena cava with >50% collapse upon inspiration consistent with Empty right atrial pressure, 10 mmHg. Aorta The aortic root size at the sinus of Valsalva is normal. The prox ascending aorta size is normal. Left Ventricular Outflow Tract Name Value Normal LVOT 2D LVOT Diameter 2.0 cm
[2021-11-01] MEDS: SODIUM CHLORIDE 0.9% IV 1,000 ML 999 ML IV CONT ×2 (00:45→01:28)
[2021-11-01 00:54] LABS: Appearance Urine Clear (Clear); Bilirubin Urine 2+ (Negative); Blood Urine Negative (Negative); Color Urine Yellow (Yellow); Glucose Urine UA Negative (Negative); Ketones Urine 1+ mg/dL (Negative); Leukocyte Esterase Ur Negative LEU/UL (Negative); Nitrate Urine Negative (Negative); Protein Urine 2+ mg/dL (Negative); Specific Grav Ur 1.025 (1.001-1.035)
[2021-11-01 00:55] LABS: Basophils Absolute Auto 0.1 K/mm3 (0.0-0.1); Basophils Percent Auto 0.3 % (0.2-1.2); Hematocrit 53.3 % (37.0-47.0); Hemoglobin 17.7 g/dL (12.0-15.0); Immature Granulocyte Absolute 0.16 K/mm3 (0.00-0.031); Immature Granulocyte Percent A 0.8 % (0-0.5); Lymphocytes Percent Auto 20.1 % (18.3-44.2); Mean Corpuscular HGB Conc 33.2 g/dl (32-36); Mean Corpuscular Hemoglobin 28.7 pg (26-34); Mean Corpuscular Volume 86.4 fl (80-100); Mean Platelet Volume 10.9 fl (7.4-10.4); Monocytes Absolute Auto 1.2 K/mm3 (0.1-0.6); Monocytes Percent Auto 6.1 % (2.6-8.5); Neutrophils Absolute Auto 14.8 K/mm3 (1.3-6.7); Neutrophils Percent Auto 72.7 % (45.5-73.1); Platelet Count Result 301 k/mm3 (150-375); Red Blood Count 6.17 M/mm3 (4.2-5.4); Red Cell Distribution Width 18.1 % (11.5-14.5); White Blood Count 20.4 K/mm3 (4.5-10.0)
[2021-11-01 00:58] LABS: Lactic Acid Reflex 2.1 mmol/L (0.7-2.0)
[2021-11-01 01:00] LABS: INR 1.1; Mucus Urine Rare /lpf; Prothrombin Time 13.3 Seconds (11.1-14.7); RBC Urine 0-2 /hpf (0-2); Squamous Epithelial Cell Urine Rare /hpf (Few); WBC Urine 0-3 /hpf
[2021-11-01 01:01] LABS: Partial Thromboplastin Time 23.3 SECONDS (22.3-36.8)
[2021-11-01 01:04] LABS: Add Urine Microscopic? YES
--- NOTE | 2021-11-01 01:07 | ED.GENADULT ---
HPI - General Adult General Chief complaint: Fall Stated complaint: ON GROUND 2-3 DAYS, WEAKNESS Time Seen by Provider: 10/31/21 23:37 History of Present Illness HPI narrative: Patient 86-year-old female who presents the emergency department with chief complaint of generalized weakness. The patient reports that she fell at home patient originally stated that the house collapsed on top of her and she has been laying in the house with her legs sticking out of the house and their neighbors found her and were able to pull her out of the remnants of her house. The actuality the patient was not seen by her neighbors for several days they noticed her laying on the floor through the window and called EMS. The patient states that she fell several days ago and has been unable to get up off the floor the patient reports that she feels generally weak and is not able to provide much history. Related Data Home Medications Medication Instructions Recorded Confirmed amlodipine 5 mg tablet 5 mg PO DAILY 06/29/19 04/04/21 atorvastatin 40 mg tablet 40 mg PO DAILY 06/29/19 04/04/21 fluticasone propionate 50 50 mcg intranasal DAILY 06/29/19 04/04/21 mcg/actuation nasal spray,suspension metoprolol succinate 100 mg 100 mg PO BID 04/04/21 04/04/21 tablet,extended release 24 hr Allergies Allergy/AdvReac Type Severity Reaction Status Date / Time ANTINEOPL Allergy Intermediate Unknown Uncoded 04/03/21 20:34 chemo drugs Allergy Intermediate Unknown Uncoded 04/03/21 20:34 NITROGLYCERIN (Generic Allergy Mild Y Uncoded 12/02/14 14:34 Allergy) CHEMOTHERAPY DRUGS AdvReac Severe SYSTEM Uncoded 10/12/14 12:48 SHUTDOWN Review of Systems Review of Systems: A 10 system review of systems was completed on the patient and is negative except for what is stated in the HPI. Nursing and ancillary documentation was reviewed. 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 She lives alone in a [employer] and [employer] house. She reportedly has caregivers that come and help. One son lives in [place] her other son lives in [place]. She is estranged from her daughter. She ambulates with a walker. Smoking status: Never smoker Second hand tobacco smoke exposure: Yes (work and home exposure) Alcohol intake: current Drinks per week: 7 Alcohol use details: She drinks a glass a wine nightly. Substance use: never Substance use type: does not use Spiritual care concerns: No Exam Narrative: GENERAL: Ill-appearing, thin in no acute distress. HEAD: Normocephalic, atraumatic. EYES: PERRLA and EOMI. ENT: Nares clear, no
[2021-11-01 01:12] LABS: Alanine Aminotransferase 54 U/L (6-35); Albumin Level 4.7 g/dL (3.5-5.1); Alkaline Phosphatase 96 U/L (38-126); Anion Gap 13 mmol/L (8-16); Aspartate Amino Transferase 154 U/L (14-36); Bilirubin,Total 1.3 mg/dL (0.2-1.3); Blood Urea Nitrogen 76 mg/dL (7-17); Calcium 9.5 mg/dL (8.4-10.2); Carbon Dioxide 24 mmol/L (22-30); Chloride 103 mmol/L (98-107); Creatine Kinase 1401 U/L (30-135); Estimated CRCL calculation 22 ml/min; Estimated Glomerular Filt Rate 36; Glucose 151 mg/dL (65-110); Magnesium 2.7 mg/dL (1.6-2.3); Potassium 2.8 mmol/L (3.4-5.0); Sodium 140 mmol/L (137-145); Troponin I 0.147 ng/mL (0.000-0.034)
[2021-11-01 01:24] LABS: Procalcitonin 0.2 ng/mL
[2021-11-01] MEDS: ASPIRIN 81 MG CHEWABLE TABLET 324 MG PO (01:28)
[2021-11-01 01:29] LABS: SARS-CoV-2 RNA PCR Negative
[2021-11-01] MEDS: KCL 20 MEQ/SW 100 ML 100 ML 50 MEQ IVPB (01:51)
[2021-11-01] MEDS: SODIUM CHLORIDE 0.9% IV 1,000 ML 125 ML IV CONT ×3 (02:36→20:49)
[2021-11-01 03:40] LABS: Reflex Lactic Acid Yes or No Add Lactic
--- NOTE | 2021-11-01 04:07 | ECG_ITS ---
Measurements Intervals Acme Rate: 115 P: IA: 0 QRS: 141 QRSD: 88 T: -86 QT: 337 QTc: 467 Interpretive Statements ATRIAL FIBRILLATION WITH RAPID VENTRICULAR RESPONSE LEFT POSTERIOR FASCICULAR BLOCK VERSUS LEAD MISPLACEMENT ST DEVIATION AND MODERATE T-WAVE ABNORMALITY, CONSIDER INFEROLATERAL ISCHEMIA VERSUS LVH WITH REPOLARIZATION COMPARED TO ECG 10/31/2021 23:36:00 LEFT POSTERIOR FASCICULAR BLOCK NOW PRESENT Electronically Signed On 11-01-2021 19:55:59 CDT by Nessa Nagy M.D.
--- NOTE | 2021-11-01 04:29 | ADMGEN ---
This patient, Moises Lovell, was admitted to IMU Room 206-02 at 0430. Patient/family oriented to hospital policies and general routines including ID bracelet, bed and alarms, visiting hours, pain management, procedures, bathroom and other care routines, personal items, smoking policy, room service/diet, and visiting hours. Information on how to activate the Rapid Response Team has been discussed. Patient/Family are encouraged to report perceived risks to care and to ask questions if they do not understand what they are told or what they should do.
[2021-11-01] MEDS: dilTIAZem 100 MG/100 ML 100 MG/100 ML BAG IV CONT (05:53)
[2021-11-01] MEDS: dilTIAZem HCl INJ 25 MG/5 ML VIAL 10 MG IV PUSH (05:53)
[2021-11-01 06:31] LABS: Lactic Acid 1.8 mmol/L (0.7-2.0)
[2021-11-01 06:48] LABS: Troponin I 0.117 ng/mL (0.000-0.034)
[2021-11-01 08:06] LABS: Troponin I 0.122 ng/mL (0.000-0.034)
--- NOTE | 2021-11-01 09:26 | PM.IMHP ---
H&P: HPI History of Present Illness Date/Time: 11/01/21 09:26 Chief Complaint: Weakness and fall Narrative: 86yo female with hx of CAD, Pacemaker, HTN and CVA here for weakness and fall. Patient is alert and oriented although her story is fantastical at times. She provides the history that she lives alone in a large home. She has no family nearby. She does have a helper that comes 3-5 days per week on average. 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 She states workers are working on an area of the house on the 1st floor and that the floor was weakened. She states that she fell through up to her chest and was stuck. She is very vague on details. The workers came later and was able to extractor from the floor and place her on a sofa. She states later that she slipped off the sofa on to the ground. She states that she was down for half a day but then changed that to 2-3 days. She normally walks with a walker. She has peripheral neuropathy with no sense of balance. She does not believe that she had a head injury but does note a lump on the back of her head that is tender to touch. She does not believe that she had loss of consciousness but later states that she is not sure. She does have a history of stroke. She has not been having any chest pain. She has been off her medications for the past few days because she ?can not find them?. She denies any sadness or depression. She denies any headaches. No vision changes but does have chronic vision loss in left eye. No odynophagia or dysphagia. She has occasional palpitations. Her last pacemaker interrogation was about a year ago. She denies any nausea or vomiting. No diarrhea. She has myalgias but feels this is more chronic. She has arthritis mostly in her left shoulder and bilateral knees but no new joint pain or abnormalities. She has a history of urine retention but no dysuria or hematuria. She does have urinary frequency. She has a history of feeling lightheaded when she stands but nothing new. No recent falls. According to the EMS notes, patient's blood pressure was 152/88 with a pulse of 88. She was lying supine and naked in her kitchen. Neighbors have been trying to get a hold of her for 2-3 days. The looked through the window and saw the patient's legs. Upon entering the patient was lying in a pool of urine. She was able answer questions appropriately but then makes inappropriate statements. She was brought to the emergency room for evaluation. In the emergency room, her blood pressure is 126/101 with a pulse of 154. EKG showed ST T wave deviation in the lateral and inferior leads which is a new finding from her prior EKG. EKG is read as AFib although the tracing is poor in that regard. Her white count was 20K but without left shift with elevated hemoglobin to 17. Potassium was 2.8 with a BUN of 76 and creatinine 1.4. Lactic acid was 2.1. AST and ALT are 154 and 54 respectively. Total CK was 1400. Troponin elevated to 0.147 but trending down from there. Procalcitonin was 0.2. Urinalysis showed 2+ protein and 1+ ketones but no blood and no red cells. COVID was negative. Chest x-ray shows some scarring and cardiomegaly but no acute findings. CT the brain showed old infarct right temporal occipital region and chronic sinusitis. Cervical spine CT showed severe spondylosis but no fracture. Patient was given IV fluids and aspirin. Potassium was replaced. She was given 1 dose of diltiazem and placed on diltiazem drip. She was admitted to the IMU for further care. Review of Systems Review of Systems: All systems reviewed & are unremarkable except as noted in HPI and below [facility] Past Medical History Medical History Anxiety ASHD (arteriosclerotic heart disease) Bilateral malignant neopla
--- NOTE | 2021-11-01 10:22 | WPDCDIQUERY2 ---
CDI Query Clarification Request 10/31 Hospitalist documented: 1) Rhabdomyolysis: ?Code(s): M62.82 - Rhabdomyolysis ?Status:?Acute ?Assessment and Plan: Patient was found down for unknown amount of time possibly at the 2-3 days.? Total CK is 1400.? This could explain the elevated troponins.? Interestingly, he has no blood in her urine.? She has been started on IV fluids.? She is on atorvastatin which could be contributing to this.? This will be held.? Trend total CK since this may worsen before it improves.? This may be contributing to her acute kidney injury but more likely that is related to dehydration. For coding purposes, Diagnosis Rhabdomyolysis requires the term: -Traumatic -Non-traumatic Please clarify if Rhabdomyolysis is traumatic or non-traumatic
[2021-11-01 10:39] LABS: Basophils Absolute Auto 0.1 K/mm3 (0.0-0.1); Basophils Percent Auto 0.3 % (0.2-1.2); Hematocrit 40.2 % (37.0-47.0); Hemoglobin 13.3 g/dL (12.0-15.0); Immature Granulocyte Absolute 0.22 K/mm3 (0.00-0.031); Immature Granulocyte Percent A 1.2 % (0-0.5); Lymphocytes Absolute Auto 6.39 K/mm3 (0.9-3.2); Lymphocytes Percent Auto 33.6 % (18.3-44.2); Mean Corpuscular HGB Conc 33.1 g/dl (32-36); Mean Corpuscular Hemoglobin 28.3 pg (26-34); Mean Corpuscular Volume 85.5 fl (80-100); Mean Platelet Volume 10.5 fl (7.4-10.4); Monocytes Absolute Auto 1.1 K/mm3 (0.1-0.6); Monocytes Percent Auto 5.6 % (2.6-8.5); Neutrophils Absolute Auto 11.3 K/mm3 (1.3-6.7); Neutrophils Percent Auto 59.3 % (45.5-73.1); Nucleated Red Blood Cells Perc 0.1 % (0.0-0.2); Platelet Count Result 202 k/mm3 (150-375)
[2021-11-01 10:54] LABS: Anion Gap 17 mmol/L (8-16); Blood Urea Nitrogen 75 mg/dL (7-17); CRP 4.9 mg/dL (<1.0); Calcium 8.2 mg/dL (8.4-10.2); Carbon Dioxide 19 mmol/L (22-30); Chloride 106 mmol/L (98-107); Estimated CRCL calculation 28 ml/min; Estimated Glomerular Filt Rate 47; Glucose 135 mg/dL (65-110); Potassium 3.1 mmol/L (3.4-5.0); Sodium 142 mmol/L (137-145)
[2021-11-01 11:01] LABS: Complement C3 88 mg/dL (88-165)
[2021-11-01 12:29] LABS: Folic Acid 8.9 ng/mL (2.76->20)
[2021-11-01] MEDS: METOPROLOL SUCCINATE EXT REL 100 MG TABCR PO ×2 (12:45→20:47)
[2021-11-01] MEDS: ENOXAPARIN 30 MG/0.3 ML SYRINGE SUB-Q (12:45)
[2021-11-01] MEDS: FLUTICASONE PROPIONATE 0.05% NA SPR 16 GM BTL (*BKC) 1 SPRAY NASAL (12:46)
[2021-11-01] MEDS: FOLIC ACID 1 MG TABLET PO (12:46)
[2021-11-01] MEDS: THIAMINE HCL 100 MG TABLET PO (12:46)
[2021-11-01] MEDS: ASPIRIN 81 MG CHEWABLE TABLET PO (14:01)
[2021-11-01] MEDS: POTASSIUM CHLORIDE 20 MEQ TABLET PO (14:02)
[2021-11-01 16:12] LABS: Eosinophil Urine None Seen % (None Seen)
--- NOTE | 2021-11-01 16:18 | PM.CNCAR ---
Assessment and Plan Assessment and plan (1) Atrial fibrillation with rapid ventricular response: Code(s): I48.91 - Unspecified atrial fibrillation <MACRINA Mayes - Last Filed: 11/01/21 16:57> Status: Acute <Allyssa Nic MACRINA Wood - Last Filed: 11/01/21 16:57> Assessment and Plan: History of paroxysmal atrial fibrillation. She does also have a pacemaker in place for sick sinus syndrome. Most recent available pacemaker check July 2020 shows normal device function. Currently in sinus rhythm with atrial ectopy. Previously not considered a good candidate for anticoagulation because of high bleeding risk due to frequent falls. Would agree with that decision and not systemically anticoagulate her as she continues to have frequent falls and drinks alcohol in excess. Continue metoprolol. Echocardiogram is pending. No additional cardiac recommendations at this time. Cardiology will sign off. Please do not hesitate to contact us with any questions or concerns. <MACRINA Mayes - Last Filed: 11/01/21 16:57> (2) Hypokalemia: Code(s): E87.6 - Hypokalemia <MACRINA Mayes - Last Filed: 11/01/21 16:57> Status: Acute <MACRINA Mayes - Last Filed: 11/01/21 16:57> Assessment and Plan: Potassium was replaced. <MACRINA Mayes - Last Filed: 11/01/21 16:57> (3) Rhabdomyolysis: Code(s): M62.82 - Rhabdomyolysis <MACRINA Mayes - Last Filed: 11/01/21 16:57> Status: Acute <MACRINA Mayes - Last Filed: 11/01/21 16:57> Assessment and Plan: Found down for an unknown period of time. Receiving IV fluids. Management per hospitalist. <MACRINA Mayes - Last Filed: 11/01/21 16:57> Assessment and Plan: Attendin Physician Addeendum: Patient seen and evaluated, examined, chart reviewed. Patient was admitted with weakness, falls and confusion, as well as rhabdomyolysis and acute kidney injury. History of PAF, and pacemaker previously followed by Dr. Romeo. She had been off of her medications and on admission she was in AFib RVR. She has subsequently converted to sinus rhythm this morning. No chest pain or shortness of breath. On exam, the patient is alert but confused, in no distress. Heart is regular rate and rhythm, lungs are clear, no edema. EKG 10/31/2021 at 11:36 p.m. on my personal review: Probable AFib RVR rate 117, LVH with repolarization abnormality 11/01/2021 EKG at 3:39 a.m.: AFib rate 115, PVC, LVH with repolarization changes, personally reviewed Echo: EF 70%, [id number] valve disease Chest x-ray on admission: Stable apical scarring, cardiomegaly Assessment: Agree w/ ELECTRICAL ELECTRONICS TECHNICIAN Allyssa Wood's assessment and plan. Paroxysmal AFib, RVR on admission, back to sinus rhythm. Had been off of her metoprolol, now resumed. No CHF Pacemaker -- not dependent, has several more years of longevity when last checked. However does not appear that pt has had pacer FU since Dr. Romeo has left the area. Confusion History of falls, not anticoagulated. Rhabdomyolysis on admission Recommendation: Continue mg b.i.d. Follow On telemetry for any recurrence Of AFib RVR Encouraged the patient to follow-up with a communications equipment supervisor for her pacemaker either at Dr. Romeo's office or our office. Will follow at a distance. Thank you For asking us To participate in the care of this lady. I contributed Substantially to this patient's care, in addition to the assessment and plan provided by Nurse Practitioner Allyssa Wood. My total time with this patient, reviewing the chart and testing and documentation was 25 minutes. Kvng Nagy M.D. <Nessa Nagy MD - Last Filed: 11/01/21 18:56> History of Present Illness History of Present Illness Consult date/time: 11/01/21 16:18 <MACRINA Mayes - Last Filed: 11/01/21 16:57> Requesting physician: David Cavanaugh MD <Allyssa Wood,
[2021-11-01 16:26] LABS: Sodium Urine Random < 5 meq/L
--- NOTE | 2021-11-01 17:03 | PC.NURSE ---
On 11/01/21, the student, [[facility] ], provided care and completed JEDI MIND documentation on this patient. I have reviewed the student's documentation and agree with the findings.
[2021-11-01 17:20] LABS: Glucose Point of Care 139 mg/dl (65-105)
[2021-11-01] MEDS: diazePAM (*CRX) 5 MG TABLET PO (20:46)
[2021-11-01] MEDS: LIDOCAINE 5% PATCH 1 PATCH TRANSDERM (22:19)
--- NOTE | 2021-11-01 22:52 | PC.NURSE ---
PATIENT IS STATING A LOT OF CONFLICTING STORIES. SHE TOLD ME MULTIPLE TIMES THAT HER SON 3 DAYS AGO. THAT SHE HAS HAD MANY 8 FUNERALS IN THE LAST 2 WEEKS. SHE STATES THAT SHE HAS INHERITED A LOT OF MONEY AND IS NOW RICH. I SPOKE WITH THE SON (STEFFI) ON THE PHONE, THE ONE THAT SHE SAID HAD 3 DAYS AGO. HE IS DOING FINE AND IS NOT . SHE ALSO STATED THAT HER DAUGHTER IS DYING AND HAS ABOUT 3 TO 4 MONTHS TO LIVE. ACCORDING TO STEFFI, HIS SISTER, DARRYL'S DAUGHTER IS DOING FINE AND IS NOT DYING. PATIENT WAS SCREAMING OUT BECAUSE OF PAIN IN LEGS. MEDICATION GIVEN PER DR ALARCON'S REQUEST. IT DID NOTHING TO EASE HER PAIN. SHE ALSO CANNOT REMEMBER THAT SHE TOOK THE PILLS. LIDOCAINE PATCHES APPLIED TO NANCY LEGS. PATIENT STATES THAT SHE IS GOING TO LEAVE THIS HOTEL. SHE IS NOT HAPPY WITH THE SERVICE. BUT SAID THAT IF SHE HAD HER CANE THAT SHE WOULD LEAVE. PATIENT IS UNABLE TO MOVE LEGS ON OWN. PATIENT MAKES INAPPROPRIATE COMMENTS AND DOES INAPPROPRIATE THINGS WHEN ASKED:WHEN ASKED TO STICK OUT HER TONGUE TO CHECK NEURO STATUS, SHE STUCK IT OUT AND WIGGLED IT AROUND AND STATED THAT SHE KNEW HOW TO BEND ME OVER. PATIENT ALSO STATED THAT SHE LIKES WINE, A LOT, THAT SHE DRINKS A LOT OF IT. BUT WASN'T SPECIFIC ABOUT THE AMOUNT. PATIENT SEEMS PARANOID AT TIMES WHEN ASKED QUESTIONS.
[2021-11-02] VITALS (18 sets, daily range): BP systolic 124–152; BP diastolic 50–76; PULSE 66–98; RESP 16–26; TEMP 36.1–37.4; O2SAT 96–100
[2021-11-02] MEDS: SODIUM CHLORIDE 0.9% IV 1,000 ML 125 ML IV CONT (05:13)
[2021-11-02 05:34] LABS: Basophils Percent Auto 0.3 % (0.2-1.2); Eosinophils Percent Auto 0.1 % (0-4.4); Hemoglobin 10.9 g/dL (12.0-15.0); Immature Granulocyte Absolute 0.09 K/mm3 (0.00-0.031); Immature Granulocyte Percent A 0.7 % (0-0.5); Lymphocytes Absolute Auto 6.37 K/mm3 (0.9-3.2); Lymphocytes Percent Auto 48.8 % (18.3-44.2); Mean Corpuscular HGB Conc 32.1 g/dl (32-36); Mean Corpuscular Hemoglobin 28.2 pg (26-34); Mean Corpuscular Volume 88.1 fl (80-100); Mean Platelet Volume 10.7 fl (7.4-10.4); Monocytes Absolute Auto 0.8 K/mm3 (0.1-0.6); Monocytes Percent Auto 6.3 % (2.6-8.5); Neutrophils Absolute Auto 5.7 K/mm3 (1.3-6.7); Neutrophils Percent Auto 43.8 % (45.5-73.1); Platelet Count Result 174 k/mm3 (150-375); Red Blood Count 3.86 M/mm3 (4.2-5.4); Red Cell Distribution Width 16.3 % (11.5-14.5); White Blood Count 13.1 K/mm3 (4.5-10.0)
[2021-11-02 05:45] LABS: Alanine Aminotransferase 31 U/L (6-35); Albumin Level 2.3 g/dL (3.5-5.1); Alkaline Phosphatase 49 U/L (38-126); Anion Gap 7 mmol/L (8-16); Aspartate Amino Transferase 70 U/L (14-36); Bilirubin,Total 0.7 mg/dL (0.2-1.3); Blood Urea Nitrogen 54 mg/dL (7-17); Calcium 7.5 mg/dL (8.4-10.2); Carbon Dioxide 24 mmol/L (22-30); Chloride 107 mmol/L (98-107); Creatine Kinase 607 U/L (30-135); Estimated CRCL calculation 38 ml/min; Estimated Glomerular Filt Rate > 60; Glucose 105 mg/dL (65-110); Sodium 138 mmol/L (137-145)
[2021-11-02 06:20] LABS: Platelet Estimate Adequate (Adequate); Poikilocytosis 1+ (NORMAL)
[2021-11-02 06:21] LABS: Ovalocytes 1+ (NORMAL)
[2021-11-02] MEDS: METOPROLOL SUCCINATE EXT REL 100 MG TABCR PO ×2 (09:51→20:43)
[2021-11-02] MEDS: POTASSIUM CHLORIDE 20 MEQ TABLET 40 MEQ PO (09:51)
[2021-11-02] MEDS: FLUTICASONE PROPIONATE 0.05% NA SPR 16 GM BTL (*BKC) 1 SPRAY NASAL (09:53)
[2021-11-02] MEDS: FOLIC ACID 1 MG TABLET PO (09:53)
[2021-11-02] MEDS: THIAMINE HCL 100 MG TABLET PO (09:54)
[2021-11-02] MEDS: ASPIRIN 81 MG CHEWABLE TABLET PO (09:54)
[2021-11-02] MEDS: ENOXAPARIN 30 MG/0.3 ML SYRINGE SUB-Q (09:54)
[2021-11-02 11:57] LABS: Glucose Point of Care 127 mg/dl (65-105)
--- NOTE | 2021-11-02 14:44 | PCPTNOTE ---
Attempted PT evaluation, pt refused stating she has had diarrhea and is very fatigued from this. RN aware. Will Follow.
--- NOTE | 2021-11-02 14:48 | PM.IMPN ---
Progress Note: A&P Assessment and Plan (1) Rhabdomyolysis: Code(s): M62.82 - Rhabdomyolysis Status: Acute Assessment and Plan: Patient was found down for unknown amount of time possibly about 2-3 days. [place] to be nontraumatic. Total CK was 1400. This could explain the elevated troponins. Interestingly, she has no blood in her urine. She has been started on IV fluids. She is on atorvastatin which could be contributing to this and this was held. Total CK now 607. Contineu to monitor. (2) Acute kidney injury: Code(s): N17.9 - Acute kidney failure, unspecified Status: Acute Assessment and Plan: Patient with acute kidney injury creatinine 1.4 and BUN of 76. Suspect this is related to dehydration. She does not appear to be on a diuretic. Renal function better with IV fluids. Continue the same. Remove Montaño catheter when able. (3) Fall: Code(s): W19.XXXA - Unspecified fall, initial encounter Status: Acute Assessment and Plan: Patient has a history of falls. She also drinks alcohol in excess and has a history of strokes all of which is contributing. She may be taking medications inappropriately as well. Continue PT and OT. (4) Acute hypokalemia: Code(s): E87.6 - Hypokalemia Status: Acute Assessment and Plan: Potassium is 2.8 on admission. Most likely related to above. This was replaced. Repeat potassium still low so replace again. . Magnesium level was 2.7. (5) Atrial fibrillation with rapid ventricular response: Code(s): I48.91 - Unspecified atrial fibrillation Status: Acute Assessment and Plan: EKG is concerning for atrial fibrillation with RVR. Her heart rate is better controlled. We resumed her metoprolol and she is off diltiazem. She would not be a good candidate for anticoagulation due to her falls. Cardiology consulted and appreciate their input. (6) Elevated troponin: Code(s): R77.8 - Other specified abnormalities of plasma proteins Status: Acute Assessment and Plan: Troponin elevated but flat to 0.147. Echo showing EF 70% and moderate pulm HTN. Suspect multifactorial due to the tachycardia, rhabdomyolysis and acute kidney injury. Follow. (7) Closed head injury: Code(s): S09.90XA - Unspecified injury of head, initial encounter Status: Acute Assessment and Plan: Patient has a close head injury. She is alert and oriented but does make fantastical statements. It is unclear this is a new finding or if this is chronic. She does have bipolar disorder and history of stroke. If acute, would consider related to her uremia possibly. Also it should be noted that she takes alprazolam and she may be having symptoms from being off this medication. She is not on medications for bipolar disorder per se. Since presumably she has been off her medications for 2-3 days, will continue to hold the alprazolam for now and follow her clinically. Related to alcohol withdrawal. Her CIWA 15 but do not feel she is in acute withdrawal. Symptoms seem to be better. Follow for now. (8) Leukocytosis: Code(s): D72.829 - Elevated white blood cell count, unspecified Status: Acute Assessment and Plan: White count 20K but without a left shift. Probably more demargination than infectious. Blood cultures NGTD. Urinalysis is not consistent with UTI. Chest x-ray is not consistent with pneumonia. WBC better at 13K. Continue to hold on antibiotics. (9) Elevated LFTs: Code(s): R79.89 - Other specified abnormal findings of blood chemistry Status: Acute Assessment and Plan: AST and ALT mildly elevated prior related to the rhabdomyolysis and/or atorvastatin use. levels better. Consider other etiologies but will trend for now. (10) Bipolar disorder: Code(s): F31.9 - Bipolar disorder, unspecified Status: Acute Assessment and Plan: As above.
--- NOTE | 2021-11-02 15:03 | PCOTNOTE ---
Attempted Occupational Therapy evaluation, Pt. stating she has had diarrhea and is unable to do any activity at this time. RN updated and aware. Will Follow.
--- NOTE | 2021-11-02 15:24 | PC.NURSE ---
On 11/02/21, the student, [Karen Steel], provided care and completed [facility] documentation on this patient. I have reviewed the student's documentation and agree with the findings.
--- NOTE | 2021-11-02 16:19 | PC.NURSE ---
This patient, Moises Lovell, was transferred to [facility] on 11/02/21 at 1600. Personal belongings sent with patient. Report given to Lala FONG. Appropriate documentation sent with patient.
[2021-11-02] MEDS: SODIUM CHLORIDE 0.9% IV 1,000 ML 70 ML IV CONT (17:33)
[2021-11-02 18:34] LABS: Toxigenic C. Diff NEGATIVE (NEGATIVE)
[2021-11-02] MEDS: LIDOCAINE 5% PATCH 1 PATCH TRANSDERM (20:43)
[2021-11-03] VITALS (10 sets, daily range): BP systolic 115–146; BP diastolic 41–86; PULSE 68–94; RESP 12–20; TEMP 36.4–37; O2SAT 95–97
[2021-11-03 00:30] LABS: Glucose Point of Care 107 mg/dl (65-105)
[2021-11-03 05:03] LABS: Basophils Percent Auto 0.2 % (0.2-1.2); Eosinophils Percent Auto 0.2 % (0-4.4); Hematocrit 35.5 % (37.0-47.0); Hemoglobin 11.4 g/dL (12.0-15.0); Immature Granulocyte Absolute 0.07 K/mm3 (0.00-0.031); Immature Granulocyte Percent A 0.7 % (0-0.5); Lymphocytes Absolute Auto 3.56 K/mm3 (0.9-3.2); Lymphocytes Percent Auto 33.1 % (18.3-44.2); Mean Corpuscular HGB Conc 32.1 g/dl (32-36); Mean Corpuscular Hemoglobin 27.8 pg (26-34); Mean Corpuscular Volume 86.6 fl (80-100); Mean Platelet Volume 10.7 fl (7.4-10.4); Monocytes Absolute Auto 0.7 K/mm3 (0.1-0.6); Neutrophils Absolute Auto 6.4 K/mm3 (1.3-6.7); Neutrophils Percent Auto 59.8 % (45.5-73.1); Platelet Count Result 152 k/mm3 (150-375); Red Cell Distribution Width 16.1 % (11.5-14.5); White Blood Count 10.8 K/mm3 (4.5-10.0)
[2021-11-03 05:17] LABS: Alanine Aminotransferase 31 U/L (6-35); Albumin Level 2.4 g/dL (3.5-5.1); Alkaline Phosphatase 55 U/L (38-126); Anion Gap 6 mmol/L (8-16); Aspartate Amino Transferase 59 U/L (14-36); Blood Urea Nitrogen 24 mg/dL (7-17); Calcium 7.6 mg/dL (8.4-10.2); Carbon Dioxide 22 mmol/L (22-30); Chloride 111 mmol/L (98-107); Creatine Kinase 270 U/L (30-135); Estimated CRCL calculation 58 ml/min; Estimated Glomerular Filt Rate > 60; Glucose 100 mg/dL (65-110); Potassium 3.5 mmol/L (3.4-5.0); Sodium 139 mmol/L (137-145)
--- NOTE | 2021-11-03 08:38 | PCPTNOTE ---
Attempt PT evaluation, pt not willing to open eyes/speak with therapist this morning. RN aware. Will follow
[2021-11-03] MEDS: ENOXAPARIN 30 MG/0.3 ML SYRINGE SUB-Q (08:51)
--- NOTE | 2021-11-03 09:08 | PC.NURSE ---
Patient refused all oral medications this morning while being combative by hitting, punching, scratching, and attempting to bite me. Non-administered vitamins and nasal spray. Will approach patient at a later time in attempt to administer priority oral medications. Will continue to monitor.
--- NOTE | 2021-11-03 10:21 | PCNFU ---
Nutrition Follow-Up Complete: Severe protein calorie malnutrition related to inadequate intake and increased needs as evidenced by weight loss (6%/6 months), inadequate intake, muscle and fat wasting, and wounds present on admission. Increased protein energy needs related to multiple pressure injuries present on admission, as evidenced by wound report and photos. Goal: Adequate intake for nutrition needs and wound healing - Goal being met per RN. Supplements added Pt current nutrition is Heart healthy diet. Nutrition recommendation: Ordering Don BID (90 kcals and 1.5 g protein each) and Ensure Compact TID (220 kcals and 9 g protein each) for additional nutrition and wound healing. Last recorded weight is 54.4 kg. Bowel Motility: +6 BM noted today 11/03/21 Labs Reviewed: hGB 11.4, hCT 35.5, Alb 2.4, Na 139, K+ 35, BUN 24. Improving Meds Noted:folic acid, thiamine, metoprolol Skin: Back: DTI BL heels: DTI Coccyx: Unstageable Additional Notes: Pt was sleeping when seen and RN asked me not to wake her up as she has been combative at times. Charted intake 40%, however HETAL Tracy says she has been eating between 50 and 75% meals. Feeds herself. Muscle and fat wasting observed to temporalis, clavicles, backs of hands. [facility]charge [facility]. Monitor diet advancement, labs, intakes, wounds, supplement tolerance. Follow up in 4 days
[2021-11-03 13:59] LABS: Glucose Point of Care 112 mg/dl (65-105)
[2021-11-03] MEDS: METOPROLOL SUCCINATE EXT REL 100 MG TABCR PO (14:56)
--- NOTE | 2021-11-03 16:45 | PM.DS ---
DS: Admitting Diagnosis Discharge Date 11/03/21 Admitting Diagnosis weakness and fall DS: Discharge Diagnosis Discharge Diagnosis (1) Rhabdomyolysis: Code(s): M62.82 - Rhabdomyolysis Status: Acute (2) Acute kidney injury: Code(s): N17.9 - Acute kidney failure, unspecified Status: Acute (3) Fall: Code(s): W19.XXXA - Unspecified fall, initial encounter Status: Acute (4) Acute hypokalemia: Code(s): E87.6 - Hypokalemia Status: Acute (5) Atrial fibrillation with rapid ventricular response: Code(s): I48.91 - Unspecified atrial fibrillation Status: Acute (6) Elevated troponin: Code(s): R77.8 - Other specified abnormalities of plasma proteins Status: Acute (7) Closed head injury: Code(s): S09.90XA - Unspecified injury of head, initial encounter Status: Acute (8) Leukocytosis: Code(s): D72.829 - Elevated white blood cell count, unspecified Status: Acute (9) Elevated LFTs: Code(s): R79.89 - Other specified abnormal findings of blood chemistry Status: Acute (10) Bipolar disorder: Code(s): F31.9 - Bipolar disorder, unspecified Status: Acute (11) Lymphoma: Code(s): C85.90 - Non-Hodgkin lymphoma, unspecified, unspecified site Status: Acute (12) Diarrhea: Code(s): R19.7 - Diarrhea, unspecified Status: Acute DS: Summary Hospital Course Reason for hospitalization: 86yo female with hx of CAD, Pacemaker, HTN and CVA here for weakness and fall.??Please see H&P for details Hospital Course: Patient was found down for unknown amount of time possibly about 2-3 days. [place] to be nontraumatic. Total CK was 1400.? This could explain the elevated troponins.? Interestingly, she has no blood in her urine.? She was started on IV fluids.? She is on atorvastatin which could be contributing to this and this was held.? Total CK now 270. Patient with acute kidney injury creatinine 1.4 and BUN of 76.? Suspect this is related to dehydration.? She is not on a diuretic. Renal function better with IV fluids. Patient has a history of falls.? She also drinks alcohol in excess and has a history of strokes all of which is contributing to her fall risk.? She may be taking medications inappropriately as well.? She worked with PT and OT.?Potassium is 2.8 on admission.? Most likely related to above.? This was replaced.? EKG is concerning for atrial fibrillation with RVR. Her heart rate is better controlled.? We resumed her metoprolol and she is off diltiazem drip. She would not be a good candidate for anticoagulation due to her falls.? Cardiology consulted and appreciated their input. Troponin elevated but flat to 0.147.? Echo showing EF 70% and moderate pulm HTN. Suspect elevated Troponin multifactorial? due to the tachycardia, rhabdomyolysis and acute kidney injury. Patient had a close head injury.? She is alert and oriented but was making fantastical statements.? It is unclear this is a new finding or if this is chronic but improved as her renal function improved.? She does have bipolar disorder and history of stroke.?Also it should be noted that she takes alprazolam and she may be having symptoms from being off this medication.? She is not on medications for bipolar disorder per se.? Since presumably she has been off her medications for 2-3 days, we held the alprazolam for now and follow her clinically.? Possibly related to alcohol withdrawal. Her CIWA 15 but did not feel she is in acute withdrawal. CIWA score improved. White count 20K but without a left shift.? Probably more demargination than infectious.? Blood cultures NGTD.? Urinalysis is not consistent with UTI.? Chest x-ray is not consistent with pneumonia.? WBC better at 10.8K. Abx were held. AST and ALT mildly elevated probably related to the rhabdomyolysis and/or atorvastatin use.? Levels better. She was having diarrhea but this has resolved. CDiff was negative.
--- NOTE | 2021-11-03 17:27 | PC.NURSE ---
Patient being discharged to [facility]. Report called to Jessica receiving nurse at facility. Will continue to monitor patient until ambulance transport arrives.
[2021-11-03 17:44] LABS: EDCOVIDSCREEN Negative (Negative)
[2021-11-03 18:58] LABS: Glucose Point of Care 146 mg/dl (65-105)
[2021-11-03 20:20] LABS: Complement Total CH50 >60 U/mL (31-60)
[2021-11-04 20:42] LABS: Alpha 1 Globulin 0.4 g/dL (0.2-0.3); Alpha 2 Globulin 0.6 g/dL (0.5-0.9); Beta 1 Globulin 0.4 g/dL (0.4-0.6); Gamma Globulin 0.9 g/dL (0.8-1.7); Protein, Total 5.4 g/dL (6.1-8.1)
--- NOTE | 2021-11-07 12:41 | PC.NURSE ---
Blood cx are negative. Stool cx are negative. SPEP- M spike is too small to quantitate. Dr. Afshan bolden.
== END 2021-11-03 20:17 ==
LOC: ANHED 11-01 02:10 → ANHIMU 11-01 05:02
PROVIDERS: Admitting Provider Internal Medicine; Emergency Provider Emergency Medicine; Visit Provider Internal Medicine
DX: M62.82 Rhabdomyolysis (principal); N17.9 Acute kidney failure, unspecified; W19.XXXA Unspecified fall, initial encounter; E87.6 Hypokalemia; I48.91 Unspecified atrial fibrillation; R77.8 Other specified abnormalities of plasma proteins; S09.90XA Unspecified injury of head, initial encounter; D72.829 Elevated white blood cell count, unspecified; R79.89 Other specified abnormal findings of blood chemistry; F31.9 Bipolar disorder, unspecified; C85.90 Non-Hodgkin lymphoma, unspecified, unspecified site; R19.7 Diarrhea, unspecified; R29.6 Repeated falls; F41.9 Anxiety disorder, unspecified; Z90.11 Acquired absence of right breast and nipple; I08.2 Rheumatic disorders of both aortic and tricuspid valves; M47.812 Spondylosis without myelopathy or radiculopathy, cervical region; H54.40 Blindness, one eye, unspecified eye; I44.5 Left posterior fascicular block; Z20.822 Contact with and (suspected) exposure to COVID-19; I10 Essential (primary) hypertension; E78.2 Mixed hyperlipidemia; R90.82 White matter disease, unspecified; I25.10 Atherosclerotic heart disease of native coronary artery without angina pectoris; G62.0 Drug-induced polyneuropathy; T45.1X5A Adverse effect of antineoplastic and immunosuppressive drugs, initial encounter; E55.9 Vitamin D deficiency, unspecified; Z95.0 Presence of cardiac pacemaker; J32.8 Other chronic sinusitis; Z86.74 Personal history of sudden cardiac arrest; Z86.73 Personal history of transient ischemic attack (TIA), and cerebral infarction without residual deficits; Z57.31 Occupational exposure to environmental tobacco smoke; Z85.3 Personal history of malignant neoplasm of breast; Z79.51 Long term (current) use of inhaled steroids; Z79.899 Other long term (current) drug therapy
CPT/HCPCS: 36415; 51701; 70450; 71045; 72125; 76775; 80053; 80069; 81001; 82550; 82570; 82607; 82746; 82948; 83605; 83735; 84145; 84155; 84165; 84300; 84443; 84484; 85025; 85610; 85730; 85999; 86140; 86160; 86162; 87040; 87045; 87426; 87427; 87493; 93005; 93306; 96361; 96365; 96366; 96367; 96372; 97161; 97166; 99285; A9270; C9803; G0378; J1650; J3480; J7030; U0003; U0005